=== PATIENT | female | born 1960 | race Hispanic/Latino ===

== ENCOUNTER 2018-02-22 18:33 | Emergency (ER) | payer BC, SELFPAY ==
[2018-02-22] MEDS ORDERED: Diazepam 5 MG TAB ONE (21:43)
[2018-02-22] MEDS ORDERED: Ketorolac Tromethamine 60 MG/2 ML VIAL ONE (21:43)
== END 2018-02-22 22:05 | disposition home or self-care (01) ==
LOC: ERS 18:33
DX: M54.5 Low back pain (principal); I10 Essential (primary) hypertension; E78.00 Pure hypercholesterolemia, unspecified; F17.210 Nicotine dependence, cigarettes, uncomplicated
CPT/HCPCS: 96372; J1885

== ENCOUNTER 2020-05-15 14:33 | Emergency (ER) | payer OTHER, SELFPAY ==
[2020-05-17 12:33] LABS: SARS-CoV-2 MS2 Positive; SARS-CoV-2 N Gene Negative; SARS-CoV-2 S Gene Negative; SARS-CoV-2 orf1ab Negative
== END 2020-05-15 15:21 | disposition home or self-care (01) ==
LOC: ERS 14:33
DX: Z20.828 Contact with and (suspected) exposure to other viral communicable diseases (principal); I10 Essential (primary) hypertension; E78.00 Pure hypercholesterolemia, unspecified; F17.210 Nicotine dependence, cigarettes, uncomplicated
CPT/HCPCS: 87635; 99283; U0003

== ENCOUNTER 2021-03-17 12:55 | Inpatient (IN) | payer OTHER ==
[2021-03-17] MEDS ORDERED: cefTRIAXone\\ROCEPHIN 2 GM VIAL ONE (14:10)
[2021-03-17] MEDS ORDERED: Vancomycin 1 GM/200 ML BAG ONE (15:41)
[2021-03-17] MEDS ORDERED: HYDROcodone/Acetaminophen 5/325 mg Tablet PO PRN (16:17)
[2021-03-17] MEDS ORDERED: Senokot S 8.6-50 MG TAB PO PRN (16:17)
[2021-03-17] MEDS ORDERED: Ondansetron PF 4 MG/2 ML Vial IVP PRN (16:17)
[2021-03-17 16:32] LABS: Bacteria/HPF None Seen HPF (None Seen); Bilirubin Negative (Negative); Blood, Urine 1+ (Negative); Clarity Clear (Clear); Glucose, Urine (Dipstick) Normal (Negative); Ketone, Urine Negative (Negative); Leukocyte Negative Leu/uL (Negative); Nitrite Negative (Negative); Protein, Urine (Dipstick) Negative (Neg-Trace); RBC/HPF 0-3 HPF (0-3); Specific Gravity, Urine 1.008 (1.002-1.036); Squamous Epithelial 0-3 HPF (0-3); Urobilinogen Normal mg/dL (Less than 2); WBC/HPF 0-3 HPF (0-3)
[2021-03-17 16:45] LABS: ALT (SGPT) 107 U/L (8-55); AST (SGOT) 227 U/L (5-34); Alkaline Phosphatase 117 U/L (40-110); Anion Gap 15 mmol/L (10-20); BUN (Urea Nitrogen) 12 mg/dL (9.8-20.1); Bilirubin, Total 0.6 mg/dL (0.2-1.2); Calc. Creatinine Clearance 0 mL/min (70-130); Calcium 9.3 mg/dL (7.8-10.44); Carbon Dioxide 22 mmol/L (22-29); Chloride 106 mmol/L (98-107); Globulin 3.3 g/dL (2.4-3.5); Glucose 110 mg/dL (70-105); Potassium 3.6 mmol/L (3.5-5.1); Protein, Total 7.3 g/dL (6.0-8.3); Sodium 139 mmol/L (136-145)
[2021-03-17 17:06] LABS: Band 54 % (5-11); Hemoglobin 14.6 g/dL (12.0-16.0); Lymphocytes 3 % (21-51); MDiff Complete? YES; Mean Corpuscular HGB CONC 33.4 g/dL (32.0-36.0); Mean Corpuscular Hemoglobin 31.3 pg (27.0-31.0); Mean Corpuscular Volume 93.7 fL (78.0-98.0); Mean Platelet Volume 7.7 fL (7.4-10.4); Monocytes 1 % (0-10); Neutrophil 42 % (42-75); Platelet Count 173 thou/uL (130-400); Platelet Morphology Comment Appears Adequate; RBC Distribution Width 11.3 % (11.5-14.5); Red Blood Cell (RBC) Count 4.66 mill/uL (4.20-5.40); White Blood Cell (WBC) Count 4.9 thou/uL (4.8-10.8)
[2021-03-17 19:22] LABS: Lactic Acid 3.1 mmol/L (0.5-2.2)
[2021-03-17] MEDS ORDERED: Acetaminophen 500 MG TAB ONE (20:11)
[2021-03-17] MEDS ORDERED: Ondansetron PF 4 MG/2 ML Vial ONE (20:11)
[2021-03-17] MEDS: Famotidine/PF 20 mg/2ml Vial SLOW IVP SCH (21:14)
[2021-03-17] MEDS: Cefepime 1 GM in Sodium Chloride 0.9% 100 ML IVPB SCH (21:14)
[2021-03-17] MEDS: Sodium Chloride 0.9% 1,000 ML IV SCH (21:15)
[2021-03-17] MEDS: Acetaminophen 325 MG TAB PO PRN (21:15)
[2021-03-17 22:08] VITALS: BMI 32.3
[2021-03-18 00:54] LABS: SARS-CoV-2 PCR by NAA Not Detected (NotDetected)
[2021-03-18] MEDS: Acetaminophen 325 MG TAB PO PRN ×2 (04:13→20:32)
[2021-03-18 04:48] LABS: #Lymphocytes 0.3 thou/uL (1.20-3.40); #Monocytes 0.1 thou/uL (0.11-0.59); #Neutrophils 4.9 thou/uL (1.40-6.50); %Eosinophils 0.2 % (0.0-10.0); %Lymphocytes 4.8 % (21.0-51.0); %Monocytes 1.1 % (0.0-10.0); %Neutrophils 93.9 % (42.0-75.0); Hemoglobin 13.1 g/dL (12.0-16.0); Mean Corpuscular HGB CONC 32.7 g/dL (32.0-36.0); Mean Corpuscular Volume 95.1 fL (78.0-98.0); Mean Platelet Volume 7.4 fL (7.4-10.4); Platelet Count 140 thou/uL (130-400); RBC Distribution Width 11.4 % (11.5-14.5); Red Blood Cell (RBC) Count 4.23 mill/uL (4.20-5.40); White Blood Cell (WBC) Count 5.3 thou/uL (4.8-10.8)
[2021-03-18 05:14] LABS: Anion Gap 10 mmol/L (10-20); BUN (Urea Nitrogen) 14 mg/dL (9.8-20.1); Calc. Creatinine Clearance 76 mL/min (70-130); Carbon Dioxide 25 mmol/L (22-29); Chloride 108 mmol/L (98-107); Glucose 140 mg/dL (70-105); Potassium 3.9 mmol/L (3.5-5.1); Sodium 139 mmol/L (136-145)
[2021-03-18] MEDS: Vancomycin 1 GM in Premix Bag 1 BAG IVPB SCH ×2 (05:25→16:19)
[2021-03-18] MEDS: Famotidine/PF 20 mg/2ml Vial SLOW IVP SCH ×2 (09:27→20:43)
[2021-03-18] MEDS: Cefepime 1 GM in Sodium Chloride 0.9% 100 ML IVPB SCH ×2 (09:27→20:40)
[2021-03-18] MEDS: Enoxaparin Sodium 40 MG/0.4 ML SYRINGE SC SCH (09:27)
[2021-03-18] MEDS: Sodium Chloride 0.9% 1,000 ML IV SCH ×2 (09:28→17:02)
[2021-03-18] MEDS ORDERED: Iopamidol-370 76% 500 ML 1 ML ONE (10:15)
[2021-03-18] MEDS: Lisinopril 10 MG TAB PO SCH (20:32)
[2021-03-19] MEDS: Sodium Chloride 0.9% 1,000 ML IV SCH ×3 (00:44→16:28)
[2021-03-19 03:37] LABS: Vancomycin, Trough 8.3 ug/mL
[2021-03-19 03:39] LABS: Chloride 110 mmol/L (98-107); Potassium 3.6 mmol/L (3.5-5.1); Sodium 137 mmol/L (136-145)
[2021-03-19 03:40] LABS: Calcium 8.2 mg/dL (7.8-10.44); Glucose 89 mg/dL (70-105)
[2021-03-19 03:42] LABS: Anion Gap 10 mmol/L (10-20); Carbon Dioxide 21 mmol/L (22-29)
[2021-03-19 03:44] LABS: BUN (Urea Nitrogen) 10 mg/dL (9.8-20.1); Calc. Creatinine Clearance 96 mL/min (70-130)
[2021-03-19] MEDS: Vancomycin HCl 1.5 GM in Sodium Chloride 0.9% 250 ML 300 ML IVPB SCH ×2 (04:05→16:27)
[2021-03-19 04:53] LABS: #Basophils 0.1 thou/uL (0.0-0.2); #Lymphocytes 0.5 thou/uL (1.20-3.40); #Monocytes 0.2 thou/uL (0.11-0.59); #Neutrophils 3.7 thou/uL (1.40-6.50); %Basophils 1.7 % (0.0-1.0); %Eosinophils 0.2 % (0.0-10.0); %Lymphocytes 11.4 % (21.0-51.0); %Monocytes 4.6 % (0.0-10.0); Hemoglobin 12.9 g/dL (12.0-16.0); Mean Corpuscular HGB CONC 32.6 g/dL (32.0-36.0); Mean Corpuscular Hemoglobin 31.9 pg (27.0-31.0); Mean Corpuscular Volume 97.7 fL (78.0-98.0); Mean Platelet Volume 8.1 fL (7.4-10.4); Platelet Count 119 thou/uL (130-400); Platelet Morphology Comment Appears Decreased; RBC Distribution Width 11.7 % (11.5-14.5); Red Blood Cell (RBC) Count 4.04 mill/uL (4.20-5.40); White Blood Cell (WBC) Count 4.6 thou/uL (4.8-10.8)
[2021-03-19] MEDS: Cefepime 1 GM in Sodium Chloride 0.9% 100 ML IVPB SCH ×2 (10:12→20:59)
[2021-03-19] MEDS: Enoxaparin Sodium 40 MG/0.4 ML SYRINGE SC SCH (10:12)
[2021-03-19] MEDS: Famotidine/PF 20 mg/2ml Vial SLOW IVP SCH ×2 (10:12→21:02)
[2021-03-19] MEDS: Lisinopril 10 MG TAB PO SCH (21:02)
[2021-03-20] MEDS: Vancomycin HCl 1.5 GM in Sodium Chloride 0.9% 250 ML 300 ML IVPB SCH ×2 (05:23→17:01)
[2021-03-20] MEDS: Sodium Chloride 0.9% 1,000 ML IV SCH ×2 (05:23→16:06)
[2021-03-20] MEDS: Cefepime 1 GM in Sodium Chloride 0.9% 100 ML IVPB SCH (08:31)
[2021-03-20] MEDS: Famotidine/PF 20 mg/2ml Vial SLOW IVP SCH (08:31)
[2021-03-20] MEDS: Enoxaparin Sodium 40 MG/0.4 ML SYRINGE SC SCH (08:31)
[2021-03-20 15:35] LABS: Vancomycin, Trough 13.5 ug/mL
[2021-03-20 15:49] VITALS: BP 142/70; TEMP 97.7
== END 2021-03-20 17:12 | disposition home or self-care (01) | DRG 872 ==
LOC: ERS 12:55 → 2NO 16:08
PROVIDERS: ADMIT Family Medicine; ATTEND Hospitalist
DX: A41.9 Sepsis, unspecified organism (principal); Z20.822 Contact with and (suspected) exposure to COVID-19; H60.90 Unspecified otitis externa, unspecified ear; R74.01 Elevation of levels of liver transaminase levels; I10 Essential (primary) hypertension; E78.00 Pure hypercholesterolemia, unspecified; F17.210 Nicotine dependence, cigarettes, uncomplicated; H60.91 Unspecified otitis externa, right ear; Z90.710 Acquired absence of both cervix and uterus; I69.392 Facial weakness following cerebral infarction; Z83.3 Family history of diabetes mellitus; Z80.7 Family history of other malignant neoplasms of lymphoid, hematopoietic and related tissues; Z79.899 Other long term (current) drug therapy
CPT/HCPCS: 36415; 70450; 71045; 74177; 76705; 78227; 80048; 80053; 80202; 81001; 83605; 85025; 87040; 87081; 87086; 87149; 87430; 87635; 93005; 96365; 96367; 96375; A9537; J0692; J0696; J1650; J2405; J3370; J3490; J7050; Q9967; S0028; U0003; U0005

== ENCOUNTER 2022-10-11 14:11 | Outpatient (CLI) | payer BC | END 2022-10-11 14:12 | disposition home or self-care (01) | LOC: BICMAMMO 14:11 | PROVIDERS: ATTEND Nurse Practitioner Family | DX: Z12.31 Encounter for screening mammogram for malignant neoplasm of breast (principal) | CPT/HCPCS: 77063; 77067 ==

== ENCOUNTER 2023-12-05 09:14 | Outpatient (CLI) | payer BC | END 2023-12-05 09:15 | disposition home or self-care (01) | LOC: BICMAMMO 09:14 | PROVIDERS: ATTEND Nurse Practitioner Family | DX: Z12.31 Encounter for screening mammogram for malignant neoplasm of breast (principal) | CPT/HCPCS: 77063; 77067 ==